=== PATIENT | female | born 2000 | race Caucasian/White ===

== ENCOUNTER 2019-01-14 20:01 | Emergency (ER) | payer BC ==
[2019-01-14] MEDS ORDERED: Ibuprofen 800 MG Tab PO ONE (20:02)
[2019-01-14] MEDS ORDERED: Cyclobenzaprine 10 MG Tab PO ONE (20:02)
--- NOTE | 2019-01-14 20:45 | EDM.PDOC ---
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 She worked out about 2 days ago,but the pain started today.No apparent injury ED ROS GENERAL - Review of Systems Review Of Systems: ROS reveals no pertinent complaints other than HPI. ED EXAM,LOWER BACK PAIN/INJURY - Physical Exam Exam: See Below Exam Limited By: No Limitations General Appearance: Alert, WD/WN Back Exam: Normal Inspection, Muscle Spasm, Vertebral Tenderness Extremities: Normal Inspection Neurological: Alert, Normal Mood/Affect, Normal Dorsiflexion, CN II-XII Intact Course - Vital Signs Last Recorded V/S: Last Vital Signs Temp 96.6 F 01/14/19 20:15 Pulse 86 01/14/19 20:15 Resp 15 01/14/19 20:15 BP 106/58 L 01/14/19 20:15 Pulse Ox 100 01/14/19 20:15 Departure - Departure Time of Disposition: 20:43 Disposition: Home, Self-Care 01 Condition: Good Clinical Impression: Back spasm - Discharge Information Referrals: PCP,None [Primary Care Provider] - - Problem List & Annotations (1) Back spasm SNOMED Code(s): 032280196 Code(s): M62.830 - MUSCLE SPASM OF BACK Status: Acute Current Visit: Yes - Problem List Review Problem List Initiated/Reviewed/Updated: Yes - Assessment/Plan Plan: Flexeril 10 mg qhs and Motrin 800 mg tid prn
== END 2019-01-14 20:57 | disposition home or self-care (01) ==
LOC: FB.ED 20:01
DX: M62.830 Muscle spasm of back (principal)
CPT/HCPCS: 99283; A9270